=== PATIENT | female | born 1995 ===

== ENCOUNTER 2019-03-12 10:30 | Inpatient (IN) | payer OTHER ==
[~2019-03-12] VITALS: Ht 162.6 cm; Wt 3.2 kg
[2019-03-12] MEDS ORDERED: PRENATABS FA T1 EACH PO (12:25)
[2019-03-12] MEDS ORDERED: ZANTAC150 M3 PO (12:26)
== END 2019-03-19 14:56 | DRG 788 ==
LOC: OB/GYN 03-16 06:40 → O/R 03-16 06:40 → RECOVERY 03-16 10:30 → OB/GYN 03-16 11:45
PROVIDERS: ADMIT Specialist
PROC: 4A1HXCZ Monitoring of Products of Conception, Cardiac Rate, External Approach (ICD-10-PCS; 2019-03-16)
PROC: 4A033R1 Measurement of Arterial Saturation, Peripheral, Percutaneous Approach (ICD-10-PCS; 2019-03-16)
PROC: 10D00Z1 Extraction of Products of Conception, Low, Open Approach (ICD-10-PCS; principal; 2019-03-16 07:00)
DX: O34.211 Maternal care for low transverse scar from previous cesarean delivery (principal); O75.82 Onset (spontaneous) of labor after 37 completed weeks of gestation but before 39 completed weeks gestation, with delivery by (planned) cesarean section; O82 Encounter for cesarean delivery without indication; Z3A.39 39 weeks gestation of pregnancy; Z37.0 Single live birth